=== PATIENT | male | born 1990 | race African-American/Black ===

== ENCOUNTER 2019-12-14 14:44 | Inpatient (IN) | payer OTHER ==
[2019-12-14 17:27] LABS: Hematocrit 49 % (42-52); Hemoglobin 15.8 g/dL (14.0-18.0); Mean Corpuscular HGB Conc 32 g/dL (31-36); Mean Corpuscular Hemoglobin 26 pg (27-31); Mean Corpuscular Volume 82 fL (80-94); Mean Platelet Volume 9.1 fL (7.4-10.4); Platelet Count 159 10^3/uL (150-450); Red Blood Count 6.01 10^6 /uL (4.18-5.48); Red Cell Distribution Width 15 % (10-15); White Blood Count 17.6 10^3/uL (3.5-10.8)
[2019-12-14 17:36] LABS: Albumin 4.6 g/dL (3.2-5.2); Albumin/Globulin Ratio 1.5 (1-3); BUN/Creatinine Ratio 13.3 (8-20); C Reactive Protein 34.86 mg/L (<8.01); Calcium 10.1 mg/dL (8.6-10.3); EGFR African American 100.3 (>60); EGFR Non-African American 82.9 (>60); Potassium 4.1 mmol/L (3.5-5.0); Total Bilirubin 0.7 mg/dL (0.2-1.0); Total Protein 7.6 g/dL (6.4-8.9)
[2019-12-14] MEDS ORDERED: Ondansetron 4 mg VIAL 2 MG/ML 2 ml VIAL IV ONE (17:46)
[2019-12-14] MEDS ORDERED: Morphine 4 MG/ML VIAL (1 ml) IV ONE (17:46)
[2019-12-14] MEDS ORDERED: NS 0.9% 1000 ml BAG 1,000 ML IV ONE (17:46)
[2019-12-14 18:02] LABS: ABS Eosinophils 0.1 10^3/ul (0-0.6); ABS Lymphocytes 0.3 10^3/ul (1.0-4.8); ABS Monocytes 0.8 10^3/ul (0-0.8); Eosinophil % 0.3 %; Lymphocyte % 1.9 %
[2019-12-14] MEDS ORDERED: Rocuronium 50 mg VIAL 10 mg/ml 5 ml VIAL (50 mg) ONE (18:34)
[2019-12-14] MEDS ORDERED: Succinylcholine 200 mg VIAL 20 mg/ml 10 ml VIAL (200 mg) ONE (18:34)
[2019-12-14] MEDS ORDERED: metroNIDAZOLE IV 500 MG/100ML 500 MG/100 ML BAG IVPB ONE (18:47)
[2019-12-14] MEDS ORDERED: ceFAZolin 2 GM PREMIX in ORs 2 GM/50 ML BAG ONE (18:47)
[2019-12-14] MEDS ORDERED: Midazolam 5 mg/5 ml VIAL 1 mg/ml 5 ml VIAL (5 mg) ONE (18:50)
[2019-12-14] MEDS ORDERED: fentaNYL 100 mcg/2 ml 50 MCG/ML VIAL ONE ×2 (18:57→19:24)
[2019-12-14] MEDS ORDERED: Propofol 10 MG/ML 20 ML BTL ONE (19:20)
[2019-12-14] MEDS ORDERED: Ondansetron 4 mg VIAL 2 MG/ML 2 ml VIAL ONE (19:20)
[2019-12-14] MEDS ORDERED: Dexamethasone IV 4 MG/ML VIAL 1 ml VIAL ONE (19:20)
[2019-12-14] MEDS ORDERED: Lidocaine 2% PF 5 ML VIAL ONE (19:20)
[2019-12-14] MEDS ORDERED: DiMENhydriNATE IV 50 mg/ml 1 ml VIAL ONE (19:20)
[2019-12-14] MEDS ORDERED: Bupivacaine 0.25% SDV 30 ML ONE (19:31)
[2019-12-14] MEDS ORDERED: Neostigmine Methylsulfate 1 MG/ML 10 ML VIAL (1 mg/ml) ONE (20:18)
[2019-12-14] MEDS ORDERED: Glycopyrrolate IV 0.2 MG/ML 1 ML VIAL ONE (20:18)
[2019-12-14] MEDS ORDERED: HYDROmorphone 1 MG/1 ML SYRINGE ONE (20:20)
[2019-12-14] MEDS ORDERED: Ondansetron 4 mg VIAL 2 MG/ML 2 ml VIAL IV PRN (20:31)
[2019-12-14] MEDS ORDERED: HYDROmorphone 1 MG/1 ML SYRINGE IV PRN (20:52)
[2019-12-14] MEDS ORDERED: DiMENhydriNATE IV 50 mg/ml 1 ml VIAL IV PUSH PRN (20:52)
[2019-12-14] MEDS ORDERED: Naloxone 0.4 mg VIAL 0.4 mg/ml 1 ml VIAL IV PRN (20:52)
[2019-12-14] MEDS: NS 0.9% 1000 ml BAG 1,000 ML IV SCH (22:23)
[2019-12-14] MEDS ORDERED: ZOSYN 3.375 GM x ONE DOSE over 30 miuntes IVPB (23:00)
[2019-12-14] MEDS: Pantoprazole 80 mg in NS BAG 80 MG/250 ML BAG IV SCH (23:02)
[2019-12-14] MEDS: Heparin 5000 UNITS/ML VIAL(*) 1 ml vial SUBCUT SCH (23:25)
[2019-12-15] MEDS: Piperacillin/Tazobactam VIAL*) 3.375 GM in NS 0.9% 100 ml BAG 100 ML IVPB SCH ×4 (01:23→18:38)
[2019-12-15] MEDS: HYDROmorphone 0.5 MG/0.5 ML SYRINGE IV SLOW PU PRN ×3 (06:00→22:33)
[2019-12-15 06:05] LABS: Hematocrit 41 % (42-52); Hemoglobin 13.2 g/dL (14.0-18.0); Mean Corpuscular HGB Conc 32 g/dL (31-36); Mean Corpuscular Hemoglobin 26 pg (27-31); Mean Corpuscular Volume 80 fL (80-94); Mean Platelet Volume 9.2 fL (7.4-10.4); Platelet Count 140 10^3/uL (150-450); Red Blood Count 5.12 10^6 /uL (4.18-5.48); Red Cell Distribution Width 14 % (10-15); White Blood Count 16.6 10^3/uL (3.5-10.8)
[2019-12-15 06:24] LABS: Albumin 3.4 g/dL (3.2-5.2); Albumin/Globulin Ratio 1.8 (1-3); BUN/Creatinine Ratio 12.8 (8-20); Calcium 8.6 mg/dL (8.6-10.3); EGFR African American 96.1 (>60); EGFR Non-African American 79.4 (>60); Globulin 1.9 g/dL (2-4); Potassium 4.2 mmol/L (3.5-5.0); Total Bilirubin 0.8 mg/dL (0.2-1.0); Total Protein 5.3 g/dL (6.4-8.9)
[2019-12-15 06:31] LABS: ABS Basophils 0.1 10^3/ul (0-0.2); ABS Lymphocytes 0.4 10^3/ul (1.0-4.8); ABS Monocytes 0.7 10^3/ul (0-0.8); Lymphocyte % 2.6 %
[2019-12-15] MEDS: Heparin 5000 UNITS/ML VIAL(*) 1 ml vial SUBCUT SCH ×3 (06:34→22:33)
[2019-12-15] MEDS: NS 0.9% 1000 ml BAG 1,000 ML IV SCH ×2 (07:31→16:05)
[2019-12-15] MEDS: Pantoprazole 80 mg in NS BAG 80 MG/250 ML BAG IV SCH ×2 (09:59→19:54)
[2019-12-16] MEDS: NS 0.9% 1000 ml BAG 1,000 ML IV SCH ×3 (00:10→18:17)
[2019-12-16] MEDS: Piperacillin/Tazobactam VIAL*) 3.375 GM in NS 0.9% 100 ml BAG 100 ML IVPB SCH ×3 (02:59→18:16)
[2019-12-16] MEDS: HYDROmorphone 0.5 MG/0.5 ML SYRINGE IV SLOW PU PRN ×3 (03:21→21:58)
[2019-12-16] MEDS: Heparin 5000 UNITS/ML VIAL(*) 1 ml vial SUBCUT SCH ×3 (06:35→21:59)
[2019-12-16] MEDS: Pantoprazole 80 mg in NS BAG 80 MG/250 ML BAG IV SCH ×3 (08:29→20:53)
[2019-12-17] MEDS: NS 0.9% 1000 ml BAG 1,000 ML IV SCH ×3 (02:56→19:40)
[2019-12-17] MEDS: Piperacillin/Tazobactam VIAL*) 3.375 GM in NS 0.9% 100 ml BAG 100 ML IVPB SCH ×3 (02:56→18:44)
[2019-12-17] MEDS: HYDROmorphone 0.5 MG/0.5 ML SYRINGE IV SLOW PU PRN ×2 (04:17→21:59)
[2019-12-17] MEDS: Heparin 5000 UNITS/ML VIAL(*) 1 ml vial SUBCUT SCH ×3 (07:08→21:59)
[2019-12-17] MEDS: Pantoprazole 80 mg in NS BAG 80 MG/250 ML BAG IV SCH ×2 (07:30→17:58)
[2019-12-18] MEDS: HYDROmorphone 0.5 MG/0.5 ML SYRINGE IV SLOW PU PRN ×5 (01:52→23:48)
[2019-12-18] MEDS: Piperacillin/Tazobactam VIAL*) 3.375 GM in NS 0.9% 100 ml BAG 100 ML IVPB SCH ×3 (03:16→17:54)
[2019-12-18] MEDS: NS 0.9% 1000 ml BAG 1,000 ML IV SCH (03:40)
[2019-12-18] MEDS: Pantoprazole 80 mg in NS BAG 80 MG/250 ML BAG IV SCH ×3 (03:59→14:31)
[2019-12-18] MEDS: Heparin 5000 UNITS/ML VIAL(*) 1 ml vial SUBCUT SCH ×3 (06:30→22:34)
[2019-12-19] MEDS: Pantoprazole 80 mg in NS BAG 80 MG/250 ML BAG IV SCH ×2 (01:11→10:50)
[2019-12-19] MEDS: Piperacillin/Tazobactam VIAL*) 3.375 GM in NS 0.9% 100 ml BAG 100 ML IVPB SCH ×2 (02:55→10:49)
[2019-12-19] MEDS: HYDROmorphone 0.5 MG/0.5 ML SYRINGE IV SLOW PU PRN ×3 (05:18→12:11)
[2019-12-19] MEDS: Heparin 5000 UNITS/ML VIAL(*) 1 ml vial SUBCUT SCH ×2 (06:08→14:10)
[2019-12-19 15:54] VITALS: BP 134/82
== END 2019-12-19 19:20 | DRG 220 ==
LOC: EDBD → ED 14:44 → OR 18:28 → EEVIPCON 20:31 → SSU 20:31
PROVIDERS: ADMIT Surgery; ATTEND Surgery
PROC: 0DU647Z Supplement Stomach with Autologous Tissue Substitute, Percutaneous Endoscopic Approach (ICD-10-PCS; principal; 2019-12-14)
DX: K25.5 Chronic or unspecified gastric ulcer with perforation (principal); K59.00 Constipation, unspecified; F17.210 Nicotine dependence, cigarettes, uncomplicated